=== PATIENT | male | born 1990 | race Caucasian/White ===

== ENCOUNTER 2022-12-07 16:18 | Emergency (ER) | payer BC, SELFPAY ==
[2022-12-07 16:41] VITALS: BP 116/67; PULSE 71; RESP 18; TEMP 36.3; O2SAT 98
--- NOTE | 2022-12-07 16:51 | ED.GENADULT ---
HPI - General Adult General Chief complaint: Upper Respiratory Infection Stated complaint: sorethroat Time Seen by Provider: 12/07/22 16:51 Source: patient Mode of arrival: ambulatory Limitations: no limitations History of Present Illness HPI narrative: 32-year-old male patient presents to the [facility] with complaints of sore throat that started today. Patient states he was running a fever earlier this morning as well. Patient states he did take some Motrin prior to arrival. Related Data Allergies Allergy/AdvReac Type Severity Reaction Status Date / Time No Known Allergies Allergy Verified 12/07/22 16:47 Review of Systems Review of Systems: CONSTITUTIONAL: + fever, chills, or sweats. EYES: Denies visual changes, redness, or discharge. ENT: Denies rhinorrhea, congestion,+ sore throat, or otalgia. CARDIOVASCULAR: Denies chest pain, palpitations, or edema. RESPIRATORY: Denies cough or dyspnea. GASTROINTESTINAL: Denies abdominal pain, nausea, vomiting, or diarrhea. GENITOURINARY: Denies dysuria or hematuria. SKIN: Denies rash or itching. MUSCULOSKELETAL: Denies back pain, joint pain, or myalgia. NEUROLOGIC: Denies headache, numbness, or weakness. PSYCHIATRIC: Denies anxiety or depression. PMFSH Comments At the time of my signature I agree with nursing past medical history, surgical, social, and family history. There is no relevant family history pertinent to the presenting complaint. Exam Narrative: GENERAL: Well-appearing, well-nourished, and in no acute distress. HEAD: Normocephalic, atraumatic. EYES: PERRLA and EOMI. ENT: Nares clear, no rhinorrhea or epistaxis. Mucous membranes moist. Posterior pharynx with erythema, 2+ tonsil enlargement noted her bilateral sides. NECK: Supple. No lymphadenopathy CHEST: Clear to auscultation. No respiratory distress. HEART: Regular rate and rhythm. No murmur heard. Normal peripheral pulses. ABDOMEN: Soft, nontender, nondistended, normal active bowel sounds. EXTREMITIES: Normal range of motion. No edema. SKIN: Warm, dry, no rash. NEURO: No focal deficits. Alert and oriented x3. Course Course Level of Care: Express Care Visit Vital Signs Vital signs: Vital Signs Temperature 36.3 C L 12/07/22 16:41 Pulse Rate 71 12/07/22 16:41 Respiratory Rate 18 12/07/22 16:41 Blood Pressure 116/67 12/07/22 16:41 Pulse Oximetry 98 12/07/22 16:41 Oxygen Delivery Room Air 12/07/22 16:41 Temperature 36.3 C L 12/07/22 16:41 Pulse Rate 71 12/07/22 16:41 Respiratory Rate 18 12/07/22 16:41 Blood Pressure 116/67 12/07/22 16:41 Pulse Oximetry 98 12/07/22 16:41 Oxygen Delivery Room Air 12/07/22 16:41 Vital signs reviewed Medical Decision Making MDM Narrative Medical decision making narrative: Discussed with patient that he has positive today for strep throat. Will go ahead and discharge him home with oral antibiotics. Patient can take [id number] Tylenol or ibuprofen as needed for pain. Patient verbalized understanding denies any other questions or concerns at this time. Differential Diagnosis Differential Diagnosis: differential diagnosis: Viral pharyngitis, pharyngitis, group A strep, infectious mononucleosis, gonococcal pharyngitis, exudative pharyngitis, oral candidiasis. Chronic allergies, postnasal drip, GERD, abscess formation, but glottitis, retropharyngeal abscess formation, or airway obstruction. Vital Signs Vital Signs: Vital Signs Temperature 36.3 C L 12/07/22 16:41 Pulse Rate 71 12/07/22 16:41 Respiratory Rate 18 12/07/22 16:41 Blood Pressure 116/67 12/07/22 16:41 Pulse Oximetry 98 12/07/22 16:41 Oxygen Delivery Room Air 12/07/22 16:41 Temperature 36.3 C L 12/07/22 16:41 Pulse Rate 71 12/07/22 16:41 Respiratory Rate 18 12/07/22 16:41 Blood Pressure 116/67 12/07/22 16:41 Pulse Oximetry 98 12/07/22 16:41 Oxygen Delivery Room Air 12/07/22 16:41 Lab Data Labs: Strep Sc
== END 2022-12-07 17:02 | disposition home or self-care (01) ==
PROVIDERS: Emergency Provider Nurse Practitioner Family
DX: J02.0 Streptococcal pharyngitis (principal)
CPT/HCPCS: 87880; 99203; G0463